=== PATIENT | female | born 1940 | race Caucasian/White ===

== ENCOUNTER 2020-07-28 12:17 | Observation (INO) | payer OTHER ==
[~2020-07-28] VITALS: Ht 160 cm; Wt 42.7 kg
[2020-07-28 14:53] LABS: BASOPHILS ABSOLUTE AUTO 0.06 K/mm3 (0.00-0.23); BASOPHILS PERCENT AUTO 1 % (0-2); EOSINOPHILS ABSOLUTE AUTO 0.06 K/mm3 (0.00-0.68); EOSINOPHILS PERCENT AUTO 1 % (0-6); Hematocrit 42.8 % (33.0-51.0); Hemoglobin 14.4 g/dL (11.5-16.0); IMMATURE GRAN ABSOLUTE AUTO 0.04 K/mm3 (0.00-0.10); IMMATURE GRAN PERCENT AUTO 1 % (0-1); LYMPHOCYTES ABSOLUTE AUTO 1.54 K/mm3 (0.84-5.20); LYMPHOCYTES PERCENT AUTO 17 % (21-46); MONOCYTES ABSOLUTE AUTO 0.58 K/mm3 (0.16-1.47); MONOCYTES PERCENT AUTO 7 % (4-13); Mean Corpuscular HGB 27.4 pg (26.0-34.0); Mean Corpuscular HGB Conc 33.6 g/dL (31.5-36.5); Mean Corpuscular Volume 82 fL (80-100); Mean Platelet Volume 10.2 fL (9.1-12.4); NEUTROPHILS ABSOLUTE AUTO 6.57 K/mm3 (1.96-9.15); NEUTROPHILS PERCENT AUTO 74 % (41-73); Platelet Count 424 K/mm3 (150-400); RDW Coefficient Variation 12.3 % (11.7-14.2); RDW Standard Deviation 36.3 fL (35.1-46.3); Red Blood Cell Count 5.25 M/mm3 (3.80-5.20); White Blood Cell Count 8.85 K/mm3 (4.00-11.30)
[2020-07-28 15:23] LABS: Source, Urine Catheter
[2020-07-28 15:29] LABS: Appearance, Urine Cloudy (Clear); Bilirubin, Urine Neg (Neg); Blood, Urine 3+ (Neg); Color, Urine Yellow (P-Yellow); Glucose Qualitative, Urine 4+ (Neg); Ketones, Urine 2+ (Neg); Leukocyte Esterase, Urine 3+ (Neg); Nitrite, Urine Neg (Neg); Protein, Urine 2+ (Neg); Urobilinogen, Urine NORM (Normal)
[2020-07-28 15:36] LABS: White Blood Cells, Urine TNTC /hpf (0-5); Yeast/Fungi Urine Many /hpf
[2020-07-28 15:37] LABS: Bacteria Few /hpf; Squamous Epithelial Cells Few /hpf (Few)
[2020-07-28 15:47] LABS: Alanine Aminotransfer (ALT/SGP 12 U/L (12-78); Albumin, Blood 3.1 g/dL (3.4-5.0); Albumin/Globulin Ratio 0.8 (0.8-1.8); Alk Phos 93 U/L (50-136); Anion Gap 9 mmol/L (6-16); Aspartate Aminotrans (AST/SGOT 6 U/L (12-37); Blood Urea Nitrogen 15 mg/dL (8-24); Bun/Creatinine Ratio 23.9 (12.0-20.0); CO2, Blood 28 mmol/L (21-32); Calcium, Blood 9.1 mg/dL (8.5-10.1); Chloride, Blood 94 mmol/L (98-108); Creatinine, Blood 0.63 mg/dL (0.40-1.00); Globulin, Blood 3.8 g/dL (2.2-4.0); Glomerular Filtration Rate >60 (60-); Glucose, Blood 416 mg/dL (70-99); Potassium, Blood 4.4 mmol/L (3.5-5.5); Sodium, Blood 131 mmol/L (136-145); Total Protein, Blood 6.9 g/dL (6.4-8.2); Troponin I <0.015 ng/mL (0.000-0.040)
[2020-07-28 15:55] LABS: Magnesium, Blood 1.7 mg/dL (1.6-2.4); Phosphorus, Blood 3.5 mg/dL (2.5-4.9)
[2020-07-28 16:13] LABS: Base Excess Venous 5.8 mmol/L; Bicarbonate Venous 27.9 mmol/L (24.0-30.0); PCO2 Venous 54.3 mmHg (38-42); PO2 Venous 51.3 mmHg (38-42); pH Blood Venous 7.37 (7.34-7.37)
[2020-07-28] MEDS ORDERED: GLUCOPHAGE1000 M4 PO (16:28)
[2020-07-28] MEDS ORDERED: VITAMIN D32000 UNI1 PO (16:32)
[2020-07-28] MEDS ORDERED: Prinivil10 MG PO (18:15)
[2020-07-28] MEDS ORDERED: CEFP200 PO (18:15)
--- NOTE | 2020-07-28 23:13 | NUR ---
ADMITTED 79 YR OLD FEMALE FROM THE ED TO FLOOR. DX UTI, QUIET, FEW WORDS WHEN ASKED AD PAZ QUESTIONS. ORIENTED TO CALL LIGHT USE. BED ALARM ON PT HAS HX OF FALLS.
--- NOTE | 2020-07-29 00:39 | NUR ---
CALLING OUT. INCONT OF URINE, CHANGED AND DAJA CARE GIVEN PER FEMALE RN. ALERT AND ORIENTED - SEEMS TO COME AND GO. IVF INFUSNIG AT 75 ML/HR PER MD ORDERS - SEE MAR FOR DETAILS. CALL LIGHT IN REACH. ENCOURAGED TO USE CALL LIGHT
--- NOTE | 2020-07-29 03:10 | NUR ---
SHIFT SUMMARY HAS BEEN RESTING QUIETLY WITH INTERMITTENT EPISODES OF VERBAL OUTBURSTS CALLINT "I NEED TO PEE!" AND MAKING ATTEMPTS TO GET OUT OF BED TO [facility]O. ASSISTED TO BEDSIDE COMMODE THESE TIMES AND PT SEEMED LESS ANXIOUS AND WOULD RETURN TO APPARENT SLEEPING AFTERWARDS. CURRENTLY RESTING QUIETLY WITH CALL LIGHT IN REACH. BED ALARM ON AND RAILS UP X 3 FOR SAFETY.
--- NOTE | 2020-07-29 18:22 | NUR ---
ALEX WHITT, (230/168) called dr after giving meds prescribed, he ordered po and iv medication, currently bp is 164/112, pt denies discomfort, episodes of emisis earlier this shift have stopped but pt declined dinner, still treated with ss insulin for cbg 294, call light in reach, iv infusing, rm air, assisted up to chair and to bsc but pt prefered being in bed and would call out until assisted back into bed, will continue to monitor and treat until share bsr with pt and noc nurse
--- NOTE | 2020-07-30 05:07 | NUR ---
nurse educator summary pt a/o x4 with generalized weakness. pt had a small emesis this morning. pt says felt better after and did not need medical intervention. pt falls right back to sleep. pt continues to have high blood pressure. medicated for hypertension overnight. denies pain. tele sr in the 70's. room air, no sob noted. call light within reach.
--- NOTE | 2020-07-30 17:15 | NUR ---
high bp noted again, tried oral medication vs injection, bp brought down to 143/88, pt resting in bed lights out
--- NOTE | 2020-07-30 18:20 | NUR ---
orintated to self and location, alert at times, emisis shortly after eating, treated high bp successfully, removed tele, call light in reach but often not used, infusing ns with no s/sx of infection or infiltration, rm air, will continue to monitor and treat until share bsr with noc nurse and pt
--- NOTE | 2020-07-31 04:03 | NUR ---
SHIFT SUMMARY ALERT, ABLE TO MAKE NEEDS KNOWN; HOWEVER, FORGETFUL AT TIMES. COOPERATIVE WITH CARE. NO C/O PAIN/DISCOMFORT NOR N/V OVERNIGHT. UNSTEADY GAIT; 1P TO BSC. APPEARED TO REST OFF AND ON OVERNIGHT. HYPERTENSIVE THIS AM; WILL MEDICATE PER EMAR AND RECHECK BP. TELE RUNNING SR IN THE 70s WITHOUT ANY EVENTS OVERNIGHT. BED REMAINS IN LOWEST POSITION; ALARM ON. CALL LIGHT WITHIN REACH; NO UTILIZATION. NO OTHER ACUTE CHANGES NOTED OVERNIGHT. CONTINUE WITH CURRENT PLAN OF CARE. REPORT TO ONCOMING RN.
[2020-07-31 05:58] LABS: Anion Gap 9 mmol/L (6-16); Blood Urea Nitrogen 12 mg/dL (8-24); Bun/Creatinine Ratio 22.8 (12.0-20.0); CO2, Blood 27 mmol/L (21-32); Calcium, Blood 8.5 mg/dL (8.5-10.1); Chloride, Blood 100 mmol/L (98-108); Creatinine, Blood 0.53 mg/dL (0.40-1.00); Glomerular Filtration Rate >60 (60-); Glucose, Blood 202 mg/dL (70-99); Potassium, Blood 3.1 mmol/L (3.5-5.5); Sodium, Blood 136 mmol/L (136-145)
--- NOTE | 2020-07-31 18:08 | NUR ---
PT RESTING IN BED AFTER DINNER AND MEDICATION ADMIN. PT ORIENTED TO SELF, PLACE AND FAMILY, HOWEVER IR REORIENTED TO SITUATION EASILY. PT IV LINE IS SL AND WNL. PT MAKES NO COMPLAINTS AT THIS TIME. STAFF WILL TO MONITOR.
[2020-08-01 06:07] LABS: Anion Gap 7 mmol/L (6-16); Blood Urea Nitrogen 17 mg/dL (8-24); Bun/Creatinine Ratio 29.6 (12.0-20.0); CO2, Blood 29 mmol/L (21-32); Calcium, Blood 8.5 mg/dL (8.5-10.1); Chloride, Blood 100 mmol/L (98-108); Creatinine, Blood 0.58 mg/dL (0.40-1.00); Glomerular Filtration Rate >60 (60-); Glucose, Blood 252 mg/dL (70-99); Potassium, Blood 3.7 mmol/L (3.5-5.5); Sodium, Blood 136 mmol/L (136-145)
--- NOTE | 2020-08-01 06:40 | NUR ---
SHIFT SUMMARY: A&OX3, UP TO THE BATHROOM WITH ASSIST OF 1 AND FWW. MOM WAS GIVEN WITH SCHEDULED BOWEL CARE MEDS WITH NO RESULT. POSITIVE BS IN ALL QUADS, PASSING FLATUS. OCCASSIONALLY INC. OF URINE. PRN APRESOLINE 10MG WAS GIVEN FOR BP OF 171/93 THIS MORNING. PATIENT REPORTS NO HEADACHE OR BLURRED VISION. BED ALARM IS ON FOR SAFETY.
--- NOTE | 2020-08-01 08:00 | NUR ---
PT PLEASANT COOP A/O X3, SOME CONCRETE NOTED. STATES LIVES HOME ALONE, PASSED. STATES SHE HAS YOUNGER MAN LIVING THERE AT THIS TIME. 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 DENIES PAIN. H/R REG, NO MURMER NOTED. NO TELE. LUNGS CLEAR T/O, RESP EASY, UNLABORED. ON R.A. BT X4 LAST B/M 3 DAYS PER PT. BOWEL CARE GIVEN WITH AM MEDS. VOIDS INCONT. ALSO 1 ASST FWW TO BATHROOM. MEPILEX PLACED ON BLANCHABLE RED SPOT ON COCCYX. VERY [place]. PLACED FOR SAFETY. BED IN LOW POSITION, CALL LITE IN REACH, BED ALARM ON FOR SAFETY
--- NOTE | 2020-08-01 13:00 | NUR ---
CALLED DR JACOBS BP RESOLVED AND CBG. 431. SHE STOPPED BY LATER. NO ADDL INS TO GIVE AT THIS TIME.
--- NOTE | 2020-08-01 16:30 | NUR ---
PT PLEASANT TODAY. HAS HAD CONCERN ABOUT MAKING HER HOUSE PAYMENT . DID HAVE S/S COME SPEAK TO HER TODAY ABOUT THE HOUSE PAYMENT. PT HAS BEEN SOME CALLING OUT INSTEAD OF USING [place]. PRESENTS TO BE CONCRETE. SOME ANXIETY NOTED. NO NEW CONCERNS NOTED. BED IN LOW POSITION, CALL LITE IN REACH, BED ALARM ON FOR SAFETY
--- NOTE | 2020-08-02 05:41 | NUR ---
SHIFT SUMMARY: A&OX2, UNSURE OF DATE. BP'S ARE 140/90 AND 127/78 THIS SHIFT. BLOOD GLUCOSE WAS 218, LONG ACTING AND SS COVERAGE WAS GIVEN PER AUG. UP TO THE BATHROOM WITH AX1 AN FWW. PATIENT HAD A SMALL SOFT FORMED BM THIS MORNING. BED ALARM REMAINS ON FOR SAFETY.
[2020-08-02 05:57] LABS: Albumin, Blood 2.5 g/dL (3.4-5.0); Anion Gap 7 mmol/L (6-16); Blood Urea Nitrogen 28 mg/dL (8-24); Bun/Creatinine Ratio 47.1 (12.0-20.0); CO2, Blood 29 mmol/L (21-32); Calcium, Blood 8.6 mg/dL (8.5-10.1); Chloride, Blood 98 mmol/L (98-108); Glomerular Filtration Rate >60 (60-); Glucose, Blood 324 mg/dL (70-99); Phosphorus, Blood 3.2 mg/dL (2.5-4.9); Sodium, Blood 134 mmol/L (136-145)
--- NOTE | 2020-08-02 08:30 | NUR ---
PT PLEASANT COOP A/O X3. TALKING POLITICS. DENIES PAIN. H/R REG, NO MURMER NOTED. NO TELE. LUNGS CLEAR, RESP EASY, UNLABORED. ON R.A. BT X4 LAST BM THIS AM. VOIDS SOME INCONT OR 1 ASST TO BATHROOM. FWW GAITE BELT. MEPILEX ON COCCYX FOR PREVENTION OVER [place] PROMINENCE. BED IN LOW POSITION, CALL LITE IN REACH, CALLS OUT FOR NEEDS. BED ALARM ON FOR SAFETY
--- NOTE | 2020-08-02 17:06 | NUR ---
PT PLEASANT TODAY. NO C/O PAIN. UP TO CHAIR FOR MEALS. TALKED SOME ABOUT POLITICS TODAY. NO NEW CONCERNS NOTED TODAY. TOOK SHOWER TODAY. 1 MAX ASSIST CANNOT ADEQUATELY TRANSFER. BED IN LOW POSITION, CALL LITE IN REACH, CALLS OUT FOR ASSISTANCE. BED ALARM ON FOR SAFETY
[2020-08-03 06:06] LABS: Albumin, Blood 2.5 g/dL (3.4-5.0); Anion Gap 7 mmol/L (6-16); Blood Urea Nitrogen 25 mg/dL (8-24); Bun/Creatinine Ratio 50.2 (12.0-20.0); CO2, Blood 27 mmol/L (21-32); Calcium, Blood 8.6 mg/dL (8.5-10.1); Chloride, Blood 102 mmol/L (98-108); Glomerular Filtration Rate >60 (60-); Glucose, Blood 83 mg/dL (70-99); Phosphorus, Blood 3.3 mg/dL (2.5-4.9); Potassium, Blood 3.6 mmol/L (3.5-5.5); Sodium, Blood 136 mmol/L (136-145)
[2020-08-04 05:34] LABS: Albumin, Blood 2.5 g/dL (3.4-5.0); Anion Gap 6 mmol/L (6-16); Blood Urea Nitrogen 23 mg/dL (8-24); Bun/Creatinine Ratio 37.2 (12.0-20.0); CO2, Blood 28 mmol/L (21-32); Calcium, Blood 8.5 mg/dL (8.5-10.1); Chloride, Blood 104 mmol/L (98-108); Creatinine, Blood 0.62 mg/dL (0.40-1.00); Glomerular Filtration Rate >60 (60-); Glucose, Blood 86 mg/dL (70-99); Phosphorus, Blood 3.8 mg/dL (2.5-4.9); Potassium, Blood 3.6 mmol/L (3.5-5.5); Sodium, Blood 138 mmol/L (136-145)
--- NOTE | 2020-08-04 05:56 | NUR ---
SHIFT SUMMARY AOX3, FORGETFUL @TIMES. ANSWERS ORIENTATION QUESTIONS CORRECTLY BUT HAS DIFFICULTY FOLLOWING DIRECTIONS @TIMES. DENIES PAIN, DYSPNEA, OR N/V. REPORTS FEELING WEAK & TIRED. CBG @HS WAS 101, HELD PM INSULIN COVERAGE. THIS AM BP WAS 183/89, GAVE HYDRALAZINE, WILL RECHECK BP FOR EFFECTIVENESS-REST OF VITALS STABLE. INCONT/CONT OF URINE, CHANGED PRN & 1 ASSIST TO BSC. CALL LIGHT IN REACH & BED ALARM ON FOR SAFETY. WILL MONITOR.
[2020-08-04 13:59] LABS: Beta-hydroxybutyrate 7.5 mg/dL (0.2-2.8)
--- NOTE | 2020-08-04 16:21 | NUR ---
CONCERNS FOR CHANGES IN ABILITY TO FOLLOW DIRECTIONS, AND CHANGES IN COORDINATION WHILE PERFORMING ADL'S AND AMBULATING EXPRESSED TO THIS RN BY OT. OT STATES PT ALSO NOTED CHANGES. NO CHANGES NOTED BY THIS RN OVER LAST TWO DAYS. PATIENT HAS HAD POOR COORDINATION, FATIGUE, DISORIENTATION TO DATE, AND HAS NOT FOLLOWED DIRECTIONS WELL YESTERDAY AND TODAY. DR. DARDEN NOTIFIED.
[2020-08-05 06:08] LABS: Albumin, Blood 2.4 g/dL (3.4-5.0); Anion Gap 7 mmol/L (6-16); Blood Urea Nitrogen 26 mg/dL (8-24); Bun/Creatinine Ratio 40.9 (12.0-20.0); CO2, Blood 27 mmol/L (21-32); Calcium, Blood 8.2 mg/dL (8.5-10.1); Chloride, Blood 104 mmol/L (98-108); Creatinine, Blood 0.64 mg/dL (0.40-1.00); Glomerular Filtration Rate >60 (60-); Glucose, Blood 149 mg/dL (70-99); Phosphorus, Blood 3.2 mg/dL (2.5-4.9); Potassium, Blood 3.9 mmol/L (3.5-5.5); Sodium, Blood 138 mmol/L (136-145)
--- NOTE | 2020-08-05 06:55 | NUR ---
SHIFT SUMMARY PT AOX3, FORGETFUL @TIMES. HAS DIFFICULTY FOLLOWING DIRECTIONS. VSS. DENIES PAIN, N/V OR DYSPNEA. THIS AM PT WAS MORE FORGETFUL THEN LAST NIGHT, SHE REPORTED SHE WAS IN "[facility] TOWN WAS "20" & COULD NOT STATE DATE. WITHIN 15 MIN HOWEVER, PT WAS AOX3 & COULD ANSWER ORIENTATION QUESTIONS CORRECTLY AGAIN. GAVE MOM LAST NIGHT SINCE PT HASN'T HAD BM IN 2DAYS, SO FAR NO RESULTS. CALL LIGHT & BED ALARM IN PLACE.
--- NOTE | 2020-08-05 17:59 | NUR ---
SHIFT SUMMARY PT AOX1-2. DOES NOT USE CALL LIGHTS- PT IS ON BED ALARM AND HIGH FALL RISK. PT IS CONFUSED TODAY AND HARD TO FOLLOW DIRECTIONS. PT USES FWW BSC WITH GAITBELT 1P ASSIST. PT BOYFRIEND WAS AT BEDSIDE AND WAS ASKING ABOUT THE REHAB PLAN FOR THIS PT DUE TO HER CONDITION. PT DENIES PAIN. BOWEL CARE GIVEN. PT NO BM SINCE 08/02. DENIES ANY ABD DISCOMFORT AT THIS TIME. BED IS IN THE LOWEST POSITION AND REORIENTATION NEEDED FOR THE USE OF CALL LIGHT
--- NOTE | 2020-08-06 04:56 | NUR ---
SHIFT SUMMARY- PT. CONFUSED LAST NIGHT, IMPULISVE, AND NOT DIRECTABLE. BP ELEVATED, SCHEDULED MEDS GIVEN W/O DIFFCULTY. BP IMPROVED DURING THE NIGHT. PT. A 1 ASSIST TO BSC, CONT/INCONT. ATTENDS IN PLACE, HAD NO BM THIS SHIFT. NO COMPLAINTS OF PAIN OR DISCOMFORT DURING THE NIGHT. SLEPT ON/OFF T/O THE SHIFT, NO APPARENT DISTRESS NOTED. CALL LIGHT WITHIN REACH, SIDE RAILS UPX2, AND BED ALARM ON. WILL CONT TO MONITOR.
--- NOTE | 2020-08-06 17:40 | NUR ---
SUMMARY PT IS A/O X1, HX DEMENTIA, FORGETFUL/CONFUSED HOWEVER PLEASANT. SHE IS IMPULSIVE, GETS UO W/O ASSIST, HIGH FALL RISK, REQUIRE BED ALARM & FREQUENT MX. 1 ASSIST TO BSC. THIS AM BP ELEVATED, 192/96, GAVE PRN HYDRALAZINE IN ADDIDTION TO SCHEDULED BP MEDS, DR DARDEN INCREASE CLONIDINE, THIS AFTERNOON BP 133/78. BLOOD SUGAR HAS BEEN ELEVATED, ADD GLIPIZIDE TODAY. 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 DR DOSS WILL PLAN FOR HOME w ADDITIONAL CAREGIVERS WHEN APPROP.
--- NOTE | 2020-08-07 04:19 | NUR ---
SHIFT SUMMARY- NO ACUTE EVENTS OVERNIGHT, PT. WAS A&OX3 WITH INTERMITTENT CONFUSION. SLEPT MOST OF THE NIGHT, NO APPARENT DISTRESS NOTED. PT. W/O BM X 4 DAYS, BOWEL CARE GIVEN PER EMAR. PT. TOLERATED WELL. NO BM THIS SHIFT. NO COMPLAINTS DURING THE NIGHT, VSS. CALL LIGHT WITHIN REACH, SIDE RAILS UPX2, AND BED ALARM ON. WILL CONT TO MONITOR.
[2020-08-07 05:36] LABS: Albumin, Blood 2.3 g/dL (3.4-5.0); Anion Gap 6 mmol/L (6-16); Blood Urea Nitrogen 38 mg/dL (8-24); Bun/Creatinine Ratio 46.8 (12.0-20.0); CO2, Blood 28 mmol/L (21-32); Calcium, Blood 8.9 mg/dL (8.5-10.1); Chloride, Blood 101 mmol/L (98-108); Creatinine, Blood 0.81 mg/dL (0.40-1.00); Glomerular Filtration Rate >60 (60-); Glucose, Blood 283 mg/dL (70-99); Phosphorus, Blood 3.4 mg/dL (2.5-4.9); Potassium, Blood 4.6 mmol/L (3.5-5.5); Sodium, Blood 135 mmol/L (136-145)
--- NOTE | 2020-08-07 19:42 | NUR ---
summary THIS AM PT WAS EXTREMELY WEAK/FATIGUED, LETHARGIC. UNABLE TO TO SIT UP UNASSISTED OR TRANSFER TO CHAIR. DR DARDEN IN TO ASSESS, STATE NOT STROKE SYMPTOMS, PROBABLY NOT RELATED TO INCREASE IN CLONIDINE HOWEVER STATE SHE WILL REVIEW MEDS, LABS. LATER TODAY STATE PROBABLY R/T KIDNEY FX, POOR HYDRATION, ORDER IV NS @ 125 ML/HR. THIS EVENING PT SEEMS SOMEWHAT IMPROVED HOWEVER CONTINUES WEAK/FATIGUED. PLAN FOR HER TO D/C TO SNF WAS UNSUCCESSFUL. & RN CARE MANAGERS WORKING W PT'S CAREGIVER KATHRIN TO ARRANGE D/C HOME W HOME HEALTH & INCREASED CAREGIVERS. KATHRIN IS PREPARING HOME, HE WAS ABLE TO MEET W DIRECTOR CORPORATE & TODAY WHILE IN TO VISIT. PT HAS NOT HAD BM X MULT DAYS, SCHEDULED BOWEL MEDS & MOM GIVEN THIS AM HOWEVER NO BM, SUPPOSITORY GIVEN THIS AFTERNOON. VS HAVE BEEN STABLE T/O DAY, AFEBRILE.
--- NOTE | 2020-08-08 03:49 | NUR ---
COMPUTER PUBLISHER SUMMARY PT A&O TO SELF. CONFUSED BUT EASILY REDIRECTABLE. PLEASANT AND COOPERATIVE TO CARE. NO C/O PAIN OR ANY DISCOMFORT THIS SHIFT. NO C/O CP, SOB, OR N&V. PT CALM AND RESTED IN BED T/O SHIFT. BED AT LOWEST POSITION. ALARM ON, CALL LIGHT WITHIN REACH.
[2020-08-08 04:35] LABS: Hemoglobin 11.3 g/dL (11.5-16.0); Mean Corpuscular HGB 28.8 pg (26.0-34.0); Mean Corpuscular HGB Conc 33.2 g/dL (31.5-36.5); Mean Corpuscular Volume 87 fL (80-100); Mean Platelet Volume 10.4 fL (9.1-12.4); Platelet Count 243 K/mm3 (150-400); RDW Coefficient Variation 12.8 % (11.7-14.2); RDW Standard Deviation 40.2 fL (35.1-46.3); Red Blood Cell Count 3.93 M/mm3 (3.80-5.20); White Blood Cell Count 5.56 K/mm3 (4.00-11.30)
[2020-08-08 05:01] LABS: Albumin, Blood 2.4 g/dL (3.4-5.0); Anion Gap 5 mmol/L (6-16); Blood Urea Nitrogen 25 mg/dL (8-24); Bun/Creatinine Ratio 42.8 (12.0-20.0); CO2, Blood 28 mmol/L (21-32); Calcium, Blood 8.7 mg/dL (8.5-10.1); Chloride, Blood 105 mmol/L (98-108); Creatinine, Blood 0.58 mg/dL (0.40-1.00); Glomerular Filtration Rate >60 (60-); Glucose, Blood 172 mg/dL (70-99); Phosphorus, Blood 3.5 mg/dL (2.5-4.9); Potassium, Blood 4.5 mmol/L (3.5-5.5); Sodium, Blood 138 mmol/L (136-145)
--- NOTE | 2020-08-08 12:54 | NUR ---
in to assess and inform, expressed concern r/pt ability to care for self, nurse stated that pt was having difficulty feeding self + drinking, pt denied having any family, dr asked in multiple ways but pt indicated that her caregiver was the only person available but that the pt trusted him, will continue to monitor and treat
--- NOTE | 2020-08-08 19:21 | NUR ---
at baseline, trouble eating and drinking on her own needed assistance, informed, call light in reach, bed in low position, rm air saline locked, bsr shared with staff and pt
--- NOTE | 2020-08-09 05:47 | NUR ---
SHIFT SUMMARY PATIENT ALERT AND ORIENTED X2. HAD NO COMPLAINTS OF PAIN OR SHORTNESS OF BREATH. WAS ABLE TO SLEEP WELL OVERNIGHT. IV PATENT AND FLUSHED. BED IN LOWEST POSITION WITH WHEELS LOCKED AND ALARM ON. CALL LIGHT WITHIN REACH. REPORT GIVEN TO ONCOMING RN.
--- NOTE | 2020-08-09 11:00 | NUR ---
CALLED PT'S CG KATHRIN VAZQUEZ [phone] TO INFORM THAT PT IS TO BE D/C'D TODAY. NO ANSWER, LEFT DETAILED VM WITH INSTRUCTIONS TO PLEASE CALL BACK.
--- NOTE | 2020-08-09 13:05 | NUR ---
CALLED PT'S FRIEND/CG KATHRIN AGAIN, NO ANSWER, LEFT VM TO RETURN MY CALL.
--- NOTE | 2020-08-09 13:18 | NUR ---
RECEIVED RETURN CALL FROM PT'S CG KATHRIN. WHEN QUERIED, HE STATED THAT HE'S NOT SURE OF THE NAME OF CHAPARRO'S PCP, BUT HE CAN FIND OUT. ALSO STATED THAT HE IS ABLE TO COOK MESS HER MEDICATIONS FROM THE PHARMACY AND THAT HE WILL GIVE HER HER MEDICATIONS WHEN AT HOME. HOSPITAL BED HAS BEEN DELIVERED TO THE HOME. THIS AUTHOR INSTRUCTED KATHRIN THAT THERE WILL BE MEDICATIONS TO BE PICKED UP AT [facility] AND FOR HIM TO COME UP TO UNIT TO RECEIVE D/C INSTRUCTIONS, TO WHICH HE VERBALIZED UNDERSTANDING. HE STATED HE CANNOT BE HERE UNTIL AROUND 1630 OR 1700.
[2020-08-09] MEDS ORDERED: LISI20 PO (14:15)
[2020-08-09] MEDS ORDERED: METF500 PO (14:16)
[2020-08-09] MEDS ORDERED: DOCU100 PO (14:17)
[2020-08-09] MEDS ORDERED: AMLO10 PO (14:17)
[2020-08-09] MEDS ORDERED: GLIP5ER PO (14:18)
[2020-08-09] MEDS ORDERED: METO50ER PO (14:19)
[2020-08-09] MEDS ORDERED: MIRALAX17 GM PO (14:19)
[2020-08-09] MEDS ORDERED: PROBIOTIC1 EA13 PO (14:20)
[2020-08-09] MEDS ORDERED: SENN187 PO (14:20)
--- NOTE | 2020-08-09 17:31 | NUR ---
SHIFT SUMMARY: NO ACUTE EVENTS. A&O X 2, ABLE TO MAKE NEEDS KNOWN. INCONTINENT OF B&B, WEARING ATTENDS. CBG 102 BEFORE DINNER; METFORMIN NOT GIVEN UNSURE IF PATIENT WILL EAT DINNER. DISCHARGE PAPERWORK IS DONE, AWAITING CG/ROOMMATE TO ARRIVE TO TAKE PT HOME.
--- NOTE | 2020-08-09 18:36 | NUR ---
CALLED PT'S CG/FRIEND KATHRIN VAZQUEZ TO SEE IF HE WAS STILL COMING TO TAR BOILER PATIENT SHE IS READY FOR DISCHARGE. NO ANSWER, AGAIN, LEFT . DISCHARGE PAPERWORK IS COMPLETE AND NEW MEDICATIONS WERE FAXED TO [facility] TODAY. SINCE IT APPEARS THAT THIS PERSON IS NOT DEPENDABLE, PERHAPS THIS PATIENT WOULD DO BETTER AT [facility] OR ASSISTED LIVING.
--- NOTE | 2020-08-10 04:47 | NUR ---
TELEVISION CABLE INSTALLER SUMMARY PT A&O TO SELF AND SURROUNDINGS. FORGETFUL AND CONFUSED AT TIMES. EASILY REDIRECTABLE. NO C/O PAIN OR ANY DISCOMFORT THIS SHIFT. NO C/O CP, SOB OR N&V. PT CALM AND RESTED IN BED T/O SHIFT. PT's BED IS AT LOWEST POSITION W/ ALARM ON, CALL LIGHT WITHIN REACH.
--- NOTE | 2020-08-10 15:46 | NUR ---
DISCHARGE NOTE PT IV REMOVED YESTERDAY. THIS RN REVIEWED DC INSTRUCTIONS WITH PT CAREGIVER KATHRIN WHO VERBALIZED AN UNDERSTANDING. THIS RN RECIEVED VERBAL ORDERS FROM DR. LUCIA TO CANCEL PT REFERRAL DUE TO PT NOT HAVING A PCP. PT RECEIVED EFM AND ELAINE PT ESTABLISHMENT PACKETS WHICH WERE SENT WITH DC INSTRUCTIONS. PT BELONGINGS GATHERED AND PLACED INTO BELONGINGS BAGS BY THIS RN. PT BELONGINGS SENT OUT WITH CAREGIVER KATHRIN. DIE HOLDER ASSISTED PT INTO PAPER SCRUBS FOR DC. PT WHEELED OFF FACILITY BY DC VOLUNTEER IN HOME WHEELCHAIR AT APPROXIMATELY 1545.
== END 2020-08-10 15:40 | disposition home or self-care (01) ==
LOC: ER 12:17 → MEDS 12:18 → ER 22:51 → MEDS 22:55
PROVIDERS: Emergency Medicine; Internal Medicine; Physician Assistant; ADMIT Internal Medicine
DX: R53.81 Other malaise (principal); E43 Unspecified severe protein-calorie malnutrition; R64 Cachexia; E11.65 Type 2 diabetes mellitus with hyperglycemia; I10 Essential (primary) hypertension; T46.5X6A Underdosing of other antihypertensive drugs, initial encounter; T38.3X6A Underdosing of insulin and oral hypoglycemic [antidiabetic] drugs, initial encounter; Z91.130 Patient's unintentional underdosing of medication regimen due to age-related debility; N39.0 Urinary tract infection, site not specified; F03.90 Unspecified dementia, unspecified severity, without behavioral disturbance, psychotic disturbance, mood disturbance, and anxiety; E86.0 Dehydration; E87.1 Hypo-osmolality and hyponatremia; R62.7 Adult failure to thrive; E87.8 Other disorders of electrolyte and fluid balance, not elsewhere classified; R11.2 Nausea with vomiting, unspecified; E87.6 Hypokalemia; G92 Toxic encephalopathy; K59.00 Constipation, unspecified; Z87.891 Personal history of nicotine dependence; Z68.24 Body mass index [BMI] 24.0-24.9, adult; Z79.84 Long term (current) use of oral hypoglycemic drugs; Z88.0 Allergy status to penicillin; Z66 Do not resuscitate
CPT/HCPCS: 36415; 71046; 74018; 80048; 80053; 80069; 81001; 82010; 82550; 82803; 82947; 83036; 83735; 84100; 84443; 84484; 85025; 85027; 87086; 93005; 93010; 96365; 96372; 96375; 96376; 97110; 97112; 97116; 97161; 97164; 97166; 97530; 97530-CO; 97535; 97535-CO; 99285-25; A9270; G0378; J0360; J0696; J1650; J2405; J7030; J7120